=== PATIENT | female | born 1990 | race American Indian/Alaskan Native ===

== ENCOUNTER 2022-01-06 09:27 | Emergency (ER) | payer SELFPAY ==
--- NOTE | 2022-01-06 11:28 | Emergency Department Report ---
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 Patient states that she missed her appointment 2 days ago with a special was here today for the headache. Patient denies any blurry vision or any new changes since being diagnosis with conjunctivitis.Patient is alert and oriented. No acute distress noted. No ill appearance noted. ED Review of Systems ROS: Stated complaint: BOTH EYES HURTS Other details as noted in HPI Constitutional: denies: chills, fever Eyes: denies: eye pain, eye discharge, vision change ENT: denies: ear pain, throat pain Respiratory: denies: cough, shortness of breath, wheezing Cardiovascular: denies: chest pain, palpitations Endocrine: no symptoms reported Gastrointestinal: denies: abdominal pain, nausea, diarrhea Genitourinary: denies: urgency, dysuria, discharge Musculoskeletal: denies: back pain, joint swelling, arthralgia Skin: denies: rash, lesions Neurological: denies: headache, weakness, paresthesias Psychiatric: denies: anxiety, depression Hematological/Lymphatic: denies: easy bleeding, easy bruising ED Past Medical Hx - Past Medical History Previous Medical History?: No - Surgical History Past Surgical History?: No - Medications Home Medications: Home Medications Medication Instructions Recorded Confirmed Last Taken Type Ibuprofen [Motrin] 600 mg PO Q8H PRN 15 Days #30 01/06/22 Unknown Rx tablet [facility] Exam - Exam General: Vital signs noted. No distress. Alert and acting appropriately. Eye Exam: Neither Injection, Neither Chemosis, Neither Abnormal Pupil, Neither EOMI, Neither Eye Foreign Body, Neither Lid Foreign Body, Neither Mucous Discharge, Neither Purulent Discharge, Neither Fluorescein Uptake, Neither Fluorescein Uptake (slit lamp), Neither Cell/Flare (slit lamp), Neither Corneal Edema, Neither Photophobia HEENT: No Nasal Congestion, No Pharyngeal Erythema Remainder of HEENT: Normal ED Course Vital Signs 01/06/22 10:02 Temperature 98.8 F Pulse Rate 79 Respiratory 18 Rate Blood Pressure 120/68 O2 Sat by Pulse 100 Oximetry ED Medical Decision Making - Medical Decision Making 31-year-old female presents to the ED with bilateral redness and a headache patient was 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 Patient states that she missed her appointment 2 days ago with a special was here today for the headache. Patient denies any blurry vision or any new changes since being diagnosis with conjunctivitis. Patient is alert and oriented. No acute distress noted. No ill appearance noted. Patient is to follow-up with Dr. Zaragoza. Physical examination unremarkable. Patient visual acuity 20/30 in right and left eye. Rechecked the patient is resting quietly quietly and comfortable and feeling better. I discussed the results of diagnostic study, my clinical impression and the plan for further treatment with the patient. Patient agrees with plan and discharge at this present time. All question addressed. I have given the patient instruction regarding a diagnosis ,expectation ,follow- up and return precaution. I explained to the patient that emergent condition may arise and to return to the ED for new worsen and any new persisting condition. I have explained the importance of following up with the primary care physician or referral physician listed below has instructed. The patient verbalized understanding of discharge instruction. Critical care attestation.: If time is entered above; I have spent that time in minutes in the direct care of this critically ill patient, excluding procedure time. ED Disposition Clinical Impression: Bacterial conjunctivitis Disposition: HOME / SELF CARE / HOMELESS Is pt being admited?: No Does the pt Need Aspirin: No Condition: Stable Instructions: Bacterial Conjunctivitis, Adult, [id number]-hi-Weab Additional Instructions: Continue to use eyedrop medicine as prescribed Keep appointment with electric stove mechanic Return to the ED for any worsening symptom or blurry vision Prescriptions: Ibuprofen [Motrin] 600 mg PO Q8H PRN 15 Days #30 tablet PRN Reason: Pain Referrals: NIHARIKA PATTON MD [Primary Care Provider] - 3-5 Days IAN SERNA MD [Staff Physician] - 3-5 Days Forms: Work/School Release Form(ED)
[2022-01-06 11:35] VITALS: BP 107/74
== END 2022-01-06 11:35 | disposition home or self-care (01) ==
LOC: ED 09:27
DX: H10.33 Unspecified acute conjunctivitis, bilateral (principal)
CPT/HCPCS: 99282

== ENCOUNTER 2022-01-22 15:28 | Emergency (ER) | payer SELFPAY ==
[2022-01-22 19:59] VITALS: BP 132/71
[2022-01-22] MEDS ORDERED: BUTALB/ACETAMINOPHEN/CAFFEINE TAB PO ONE (21:50)
[2022-01-22] MEDS ORDERED: IBUPROFEN 600 MG TAB PO ONE (21:50)
--- NOTE | 2022-01-22 23:44 | Vascular Lab Report ---
DUPLEX DOPPLER LOWER EXTREMITY VEINS, BILATERAL INDICATION / CLINICAL INFORMATION: Bilateral LE pain: r/o DVT. TECHNIQUE: Duplex doppler imaging was performed through the veins of both lower extremities using noe ous compression and other maneuvers. COMPARISON: None available. FINDINGS: RIGHT COMMON FEMORAL VEIN: Negative. RIGHT FEMORAL VEIN: Negative. RIGHT POPLITEAL VEIN: Negative. RIGHT CALF VEINS: Negative. LEFT COMMON FEMORAL VEIN: Negative. LEFT FEMORAL VEIN: Negative. LEFT POPLITEAL VEIN: Negative. LEFT CALF VEINS: Negative. ADDITIONAL FINDINGS: None. IMPRESSION: 1. No sonographic evidence for DVT in either lower extremity. Signer Name: Yariel Alvarado II, MD Signed: 01/22/2022 11:39 PM Workstation Name: [id number]
--- NOTE | 2022-01-23 00:08 | Emergency Department Report ---
ED Extremity Problem HPI - General Chief complaint: Extremity Injury, Lower Stated complaint: PAIN/LEGS/FEET Source: patient Mode of arrival: Ambulatory Limitations: No Limitations - History of Present Illness Initial comments: Patient is a 31-year-old -[place] female with no past medical history presents to the ED with complaint of acute onset persistent nontraumatic b ilateral lower extremity pain persistently for the last 2 months, worse in the last 5 days. Patient states that the pain is especially worse whenever she ambulates. Patient denies fall, traumatic injury, heavy lifting, low back pain, fever, chills, chest pain or shortness of breath, dizziness, syncope, numbness and tingling or weakness of lower extremities bilaterally. MD Complaint: extremity pain (Bilateral lower extremity pain) -: Gradual, month(s) (2) Location: bilateral lower extremity History of Same: Yes -: Yes myalgia Radiation: distal Severity scale (0 -10): 8 Quality: aching, sharp Consistency: constant Improves with: nothing Worsens with: weight bearing, walking, exertion, palpation Associated Symptoms: denies other symptoms, arthralgias. denies: chest pain, shortness of breath, fever, myalgias, rash - Related Data Previous Rx's Medication Instructions Recorded Last Taken Type Ibuprofen [Motrin] 600 mg PO Q8H PRN 15 Days #30 01/06/22 Unknown Rx tablet Ibuprofen [Motrin] 600 mg PO Q8H PRN #30 tablet 01/23/22 Unknown Rx tiZANidine [Zanaflex 4mg TAB] 4 mg PO Q12H PRN #21 tab 01/23/22 Unknown Rx Allergies Allergy/AdvReac Type Severity Reaction Status Date / Time No Known Allergies Allergy Verified 01/06/22 10:01 ED Review of Systems ROS: Stated complaint: PAIN/LEGS/FEET Other details as noted in HPI Constitutional: denies: chills, fever Eyes: denies: eye pain, eye discharge, vision change ENT: denies: ear pain, throat pain Respiratory: denies: cough, shortness of breath, wheezing Cardiovascular: denies: chest pain, palpitations Endocrine: no symptoms reported Gastrointestinal: denies: abdominal pain, nausea, diarrhea Genitourinary: denies: urgency, dysuria, discharge Musculoskeletal: arthralgia (Bilateral lower extremity pain). denies: back pain, joint swelling Skin: denies: rash, lesions Neurological: denies: headache, weakness, paresthesias Psychiatric: denies: anxiety, depression Hematological/Lymphatic: denies: easy bleeding, easy bruising ED Past Medical Hx - Past Medical History Previous Medical History?: No - Surgical History Past Surgical History?: No - Medications Home Medications: Home Medications Medication Instructions Recorded Confirmed Last Taken Type Ibuprofen [Motrin] 600 mg PO Q8H PRN 15 Days #30 01/06/22 Unknown Rx tablet Ibuprofen [Motrin] 600 mg PO Q8H PRN #30 tablet 01/23/22 Unknown Rx tiZANidine [Zanaflex 4mg TAB] 4 mg PO Q12H PRN #21 tab 01/23/22 Unknown Rx ED Physical Exam - General Limitations: No Limitations General appearance: alert, in no apparent distress - Head Head exam: Present: atraumatic, normocephalic, normal inspection - Eye Eye exam: Present: normal appearance, PERRL, EOMI Pupils: Present: normal accommodation - ENT ENT exam: Present: normal exam, normal orophraynx, mucous membranes moist, TM's normal bilaterally, normal external ear exam - Neck Neck exam: Present: normal inspection, full ROM. Absent: tenderness - Respiratory Respiratory exam: Present: normal lung sounds bilaterally. Absent: respiratory distress, wheezes, rales, rhonchi, stridor, chest wall tenderness, accessory muscle use, decreased breath sounds, prolonged expiratory - Cardiovascular Cardiovascular Exam: Present: regular rate, normal rhythm, normal heart sounds. Absent: systolic murmur, diastolic murmur, rubs, gallop - GI/Abdominal GI/Abdominal exam: Present: soft, normal bowel sounds. Absent: tenderness, guarding, rebound, hyperactive bowel sounds, hypoactive bowel sounds, organomegaly - Extremities Exam Extremities exam: Present: normal inspection, full ROM, tenderness (Palpable bilateral lower extremity tenderness diffusely), normal capillary refill, calf tenderness (Bilateral lower extremity calf tenderness). Absent: pedal edema, joint swelling - Back Exam Back exam: Present: normal inspection, full ROM. Absent: tenderness, CVA tenderness (R), CVA tenderness (L), muscle spasm, paraspinal tenderness, vertebral tenderness - Neurological Exam Neurological exam: Present: alert, oriented X3, CN II-XII intact, normal gait, reflexes normal - Psychiatric Psychiatric exam: Present: normal affect, normal mood - Skin Skin exam: Present: warm, dry, intact, normal color. Absent: rash ED Course Vital Signs 01/22/22 01/22/22 01/22/22 16:06 19:58 21:58 Temperature 98.3 F 99.1 F Pulse Rate 80 68 Respiratory 16 18 14 Rate Blood Pressure 119/71 132/71 O2 Sat by Pulse 100 98 Oximetry ED Medical Decision Making - Radiology Data Radiology results: report reviewed, image reviewed [facility] [address] [place] [address] Vascular Lab Report Signed Patient: SHAWN WOODARD MR#: [id number] : 1990 Acct:[id number] Age/Sex: 31 / F ADM Date: 01/22/22 Loc: ED Attending Dr: Ordering Physician: ALEXSANDRA GRESHAM Date of Service: 01/22/22 Procedure(s): VL venous duplex LE BILAT Accession Number(s): [id number] cc: ALEXSANDRA GRESHAM DUPLEX DOPPLER LOWER EXTREMITY VEINS, BILATERAL INDICATION / CLINICAL INFORMATION: Bilateral LE pain: r/o DVT. TECHNIQUE: Duplex doppler imaging was performed through the veins of both lower extremities using venous compression and other maneuvers. COMPARISON: None available. FINDINGS: RIGHT COMMON FEMORAL VEIN: Negative. RIGHT FEMORAL VEIN: Negative. RIGHT POPLITEAL VEIN: Negative. RIGHT CALF VEINS: Negative. LEFT COMMON FEMORAL VEIN: Negative. LEFT FEMORAL VEIN: Negative. LEFT POPLITEAL VEIN: Negative. LEFT CALF VEINS: Negative. ADDITIONAL FINDINGS: None. IMPRESSION: 1. No sonographic evidence for DVT in either lower extremity. Signer Name: Jacquelyn Wayne II, MD Signed: 01/22/2022 11:39 PM Workstation Name: [id number] Transcribed By: ROS Dictated By: JACQUELYN WAYNE II, MD Electronically Authenticated By: JACQUELYN WAYNE II, MD Signed Date/Time: 01/22/222338 DD/ 38 TD/TT: - Medical Decision Making This is a 31-year-old -[place] female with no past medical history presents to the ED with complaint of acute onset persistent nontraumatic bilateral lower extremity pain persistently for the last 2 months, worse in the last 5 days. Patient states that the pain is especially worse whenever she ambulates. In the ED, patient is alert and oriented x3 and is not in any distress. Patient was treated for pain in the ED and bilateral lower extremity Doppler ultrasound showed no sonographic evidence of DVT on the lower extremities. On reevaluation, patient's pain is moderate controlled with medication. Patient symptoms are likely musculoskeletal muscle strain or muscle spasm. Patient was discharged home on pain medications and muscle relaxants and advised to follow-up with her primary care physician in 7 to 10 days for reevaluation or return to the ED immediately if symptoms get worse. - Differential Diagnosis Muscle spasm; muscle strain; DVT; tendinitis Critical care attestation.: If time is entered above; I have spent that time in minutes in the direct care of this critically ill patient, excluding procedure time. ED Disposition Clinical Impression: Bilateral lower extremity pain, Muscle spasms of both lower extremities Disposition: HOME / SELF CARE / HOMELESS Is pt being admited?: No Does the pt Need Aspirin: No Condition: Stable Instructions: Muscle Cramps and Spasms, [id number], Leg Cramps Additional Instructions: The bilateral lower extremity Doppler ultrasound showed no sonographic evidence of DVT. Therefore your symptoms are likely due to muscle spasm or muscle strain of your lower extremities. Take medications as needed for pain, drink plenty of fluids and follow-up with your primary care physician in 7 to 10 days for reevaluation. Return to the ED immediately if symptoms get worse. Prescriptions: Ibuprofen [Motrin] 600 mg PO Q8H PRN #30 tablet PRN Reason: Pain tiZANidine [Zanaflex 4mg TAB] 4 mg PO Q12H PRN #21 tab PRN Reason: Muscle Spasm Referrals: NIHARIKA PATTON MD [Primary Care Provider] - 3-5 Days Time of Disposition: 00:10 Print Language: BELARUSIAN
== END 2022-01-23 00:25 | disposition home or self-care (01) ==
LOC: ED 15:28
DX: M62.838 Other muscle spasm (principal); M79.661 Pain in right lower leg; M79.662 Pain in left lower leg; Z79.899 Other long term (current) drug therapy
CPT/HCPCS: 93970; 99283